=== PATIENT | male | born 1935 | race Caucasian/White ===

== ENCOUNTER 2019-08-18 07:17 | Day surgery (SDC) | payer MEDICARE, OTHER ==
[~2019-08-18] VITALS: Ht 172.7 cm; Wt 71.0 kg
[2019-08-18] MEDS ORDERED: COUMADIN PO (08:13)
[2019-08-18] MEDS ORDERED: LACTATED RINGERS 1,000 ML IV SCH (08:13)
[2019-08-18 08:14] VITALS: BP 110/69
[2019-08-18] MEDS ORDERED: LIDOCAINE 1%, 20ML ONE (08:15)
[2019-08-18] MEDS ORDERED: BUPIVACAINE/PF 0.5% ONE (08:15)
[2019-08-18] MEDS ORDERED: WARF2.5T PO (08:38)
[2019-08-18] MEDS ORDERED: ROSUVASTATIN PO (08:38)
[2019-08-18] MEDS ORDERED: WARF5TAB PO (08:38)
[2019-08-18] MEDS ORDERED: ISOS30TA8 PO (08:38)
[2019-08-18] MEDS ORDERED: METOPROLOL PO (08:38)
[2019-08-18 08:51] LABS: INTERNATIONAL NORMALIZED RATIO 2.93 (0.93-1.1); PROTHROMBIN TIME 31.4 Seconds (9.6-11.5)
[2019-08-18 08:55] LABS: ALANINE AMINOTRANSFERASE 32 U/L (12-78); ALBUMIN 3.7 g/dL (3.4-5.0); ANION GAP 6 mmol/L (5-15); CALCIUM 8.5 mg/dL (8.5-10.1); CHLORIDE 107 mmol/L (98-107)
[2019-08-18 08:58] LABS: ALKALINE PHOSPHATASE 88 U/L (45-117); BILIRUBIN,TOTAL 1.1 mg/dL (0.2-1.0); CREATININE 0.86 mg/dL (0.7-1.3)
[2019-08-18] MEDS ORDERED: CEFAZOLIN 1,000 MG ONE (09:14)
[2019-08-18] MEDS ORDERED: EPINEPHRINE 1 MG/ML, 1ML INFIL ONE (10:30)
== END 2019-08-18 10:55 | disposition home or self-care (01) ==
LOC: OUT 07:17
PROVIDERS: ATTEND Orthopaedic Surgery
DX: G56.01 Carpal tunnel syndrome, right upper limb (principal); M65.341 Trigger finger, right ring finger; I10 Essential (primary) hypertension; E78.5 Hyperlipidemia, unspecified; M06.9 Rheumatoid arthritis, unspecified; Z79.01 Long term (current) use of anticoagulants; Z79.899 Other long term (current) drug therapy; Z87.891 Personal history of nicotine dependence; Z88.8 Allergy status to other drugs, medicaments and biological substances; Z95.2 Presence of prosthetic heart valve; Z82.49 Family history of ischemic heart disease and other diseases of the circulatory system
CPT/HCPCS: 26055; 36415; 64721; 80053; 85610; 93005; J0171; J0690; J7120